=== PATIENT | male | born 1975 | race Caucasian/White ===

== ENCOUNTER 2017-05-06 01:30 | Emergency (ER) | payer MEDICARE, MEDICAID ==
[~2017-05-06] VITALS: Ht 190.5 cm; Wt 128.6 kg
[~2017-05-06 01:30] MED LIST: CLOT12CR TOP; DIAZ5TAB PO; FLUTICASONE 50 MCG; LORATADINE 10 MG; METH500T PO; NO HOME MEDS
[2017-05-06 01:35] VITALS: BP 131/81
[2017-05-06] MEDS ORDERED: GABA100C PO (02:00)
== END 2017-05-06 02:41 | disposition home or self-care (01) ==
LOC: ER 01:31
DX: G56.01 Carpal tunnel syndrome, right upper limb (principal); G89.29 Other chronic pain; Z79.899 Other long term (current) drug therapy
CPT/HCPCS: 99283

== ENCOUNTER 2017-06-03 16:13 | Emergency (ER) | payer MEDICARE, MEDICAID ==
[~2017-06-03] VITALS: Ht 190.5 cm; Wt 129.3 kg
[~2017-06-03 16:13] MED LIST changes: +GABA100C PO
[2017-06-03 16:22] VITALS: BP 132/106
[2017-06-03] MEDS ORDERED: LORazepam 1 MG tablet PO ONE (17:10)
[2017-06-04] MEDS ORDERED: PROP10TA10 PO (10:31)
[2017-06-04] MEDS ORDERED: CITA20TA11 PO (10:39)
== END 2017-06-03 17:22 | disposition left against medical advice (07) ==
LOC: ER 16:13
DX: F41.9 Anxiety disorder, unspecified (principal); G89.29 Other chronic pain; Z79.899 Other long term (current) drug therapy
CPT/HCPCS: 99283; 99284

== ENCOUNTER 2017-06-04 09:55 | Emergency (ER) | payer MEDICARE, MEDICAID ==
[~2017-06-04] VITALS: Ht 190.5 cm; Wt 127.0 kg
[2017-06-04 09:57] VITALS: BP 154/113
[2017-06-04] MEDS ORDERED: PROP10TA10 PO (10:31)
[2017-06-04] MEDS ORDERED: CITA20TA11 PO (10:39)
== END 2017-06-04 10:57 | disposition home or self-care (01) ==
LOC: ER 09:55
DX: F41.9 Anxiety disorder, unspecified (principal); G89.29 Other chronic pain; Z79.899 Other long term (current) drug therapy
CPT/HCPCS: 99284

== ENCOUNTER 2018-09-04 23:06 | Emergency (ER) | payer OTHER, MEDICARE, MEDICAID ==
[~2018-09-04] VITALS: Ht 190.5 cm; Wt 104.5 kg
[2018-09-05] MEDS ORDERED: HYDR-3965 PO (00:24)
[2018-09-05] MEDS ORDERED: ONDA4TAB6 PO (00:24)
[2018-09-05] MEDS ORDERED: acetaminophen 325mg tablet PO ONE (00:25)
[2018-09-05 00:33] VITALS: BP 180/103
[2018-09-05] MEDS ORDERED: HYDR-4353 PO (14:04)
== END 2018-09-05 02:25 | disposition home or self-care (01) ==
LOC: ER 23:06
DX: S92.412A Displaced fracture of proximal phalanx of left great toe, initial encounter for closed fracture (principal); S83.195A Other dislocation of left knee, initial encounter; S90.32XA Contusion of left foot, initial encounter; G89.29 Other chronic pain; F41.9 Anxiety disorder, unspecified; Z88.8 Allergy status to other drugs, medicaments and biological substances; Z79.899 Other long term (current) drug therapy; V89.2XXA Person injured in unspecified motor-vehicle accident, traffic, initial encounter; Y93.89 Activity, other specified; Y92.488 Other paved roadways as the place of occurrence of the external cause; Y99.8 Other external cause status
CPT/HCPCS: 29505; 73564; 73630; 99283